=== PATIENT | male | born 1930 ===

== ENCOUNTER 2017-01-24 16:19 | Emergency (ER) | payer MEDICARE, BC ==
--- NOTE | ~2017-01-24 | ER ---
PATIENT'S NAME: SUHAIL RAMOS [facility] AGE: 86 Y [address] ROOM: [place] [address] LOCATION: [facility] ADMIT DATE: 01/24/2017 ER/Outpatient Report DISCHARGE DATE: 01/24/2017 FAMILY PHYSICIAN: PHYSICIAN, NO ATTENDING PHYSICIAN: Lars Winters CHIEF COMPLAINT: Bleeding left ear. TIME OF THE PATIENT ARRIVAL: 1619 hours. TIME OF THE PATIENT EVALUATION: 1625 hours. HISTORY OF PRESENT ILLNESS: This is an 86-year-old male presents to the ER. He states he had some skin cancer removed by Dr. Trent in [place] around 11 o'clock today. He states it was just on his facial cheek and front of his left ear. He was pumping some gas and noticed that his shirt was all wet and the area had been bleeding. He states that he went home and changed the shirt. He called the clinic and they told him to come back, but he did not want to drive all the way back to [place]; so, he came here to get evaluated. The patient has no current pain. He denies any lightheadedness or dizziness. He states that he has not been holding direct pressure, but just has been dabbing at it with a Kleenex. ALLERGIES: NO KNOWN ALLERGIES. MEDICATIONS: Aspirin. PAST MEDICAL HISTORY: Macular degeneration. SOCIAL HISTORY: Denies smoking, drug, or alcohol use. REVIEW OF SYSTEMS: CONSTITUTIONAL: Denies any change of weight or fatigue. SKIN: He has oozing area from skin cancer removal. PHYSICAL EXAMINATION: VITAL SIGNS: Height 5 feet, 7 inches stated, weight 84 kg taken, blood PATIENT'S NAME: SUHAIL RAMOS [facility] AGE: 86 Y [address] ROOM: [place] [address] LOCATION: ED ADMIT DATE: 01/24/2017 ER/Outpatient Report DISCHARGE DATE: 01/24/2017 FAMILY PHYSICIAN: PHYSICIAN, NO ATTENDING PHYSICIAN: Lars Winters pressure is 176/80, pulse 74, respirations 16, temperature 98 degrees tympanically, and saturations 96% on room air. [place] Coma Score is 15. GENERAL: Alert, calm, well-developed, 86-year-old, in no acute distress. EXTREMITIES: No clubbing, cyanosis, or edema. Has full range of motion of all limbs. SKIN: He has a well-circular wounds noted to his facial cheek just in front of the left ear. This was oozing blood. There are no pulsations. LABS AND X-RAYS: None were done. IMPRESSION: Postoperative bleeding, skin cancer removal. ASSESSMENT AND PLAN: I did apply pressure, but that did not subside the bleeding; so, I did use silver nitrate stick to the area and then applied pressure again and the bleeding did subside. The patient did tolerate this well. We did monitor him for approximately 10 minutes after and it continued to be stable. We will dismiss the patient to home, advised him not to rub the area, and be careful while sleeping and follow up with his spudder if needed. The patient understands and agrees with care. CHATA YE PA-C FOR MD LYNDON LEMUS/tamia /[id number] d: 01/25/17 0129 t: 02/06/17 1721, OUTPATIENT REPORT
== END 2017-01-24 16:43 | disposition disaster alternative care site (69) ==
LOC: GMED 16:19
DX: L76.21 Postprocedural hemorrhage of skin and subcutaneous tissue following a dermatologic procedure (principal); H35.30 Unspecified macular degeneration; Z98.890 Other specified postprocedural states; Z79.82 Long term (current) use of aspirin